=== PATIENT | male | born 1995 | race African-American/Black ===

== ENCOUNTER 2019-03-25 21:31 | Emergency (ER) | payer SELFPAY ==
[~2019-03-25] VITALS: Ht 182.9 cm; Wt 84.1 kg
[2019-03-25 21:57] VITALS: Ht 182.9 cm; Wt 84.1 kg
[2019-03-25] MEDS ORDERED: FLUTICASONE PRO16 GM NASAL (23:17)
[2019-03-25] MEDS ORDERED: AUGMENTIN 875-11 TAB PO (23:17)
[2019-03-25 23:25] VITALS: BP 139/79
== END 2019-03-25 23:25 | disposition home or self-care (01) ==
LOC: D.ER 21:31
DX: J01.90 Acute sinusitis, unspecified (principal); Z72.0 Tobacco use

== ENCOUNTER 2019-06-03 07:49 | Emergency (ER) | payer SELFPAY ==
[~2019-06-03] VITALS: Ht 182.9 cm; Wt 84.1 kg
[~2019-06-03 07:49] MED LIST: AUGMENTIN 875-11 TAB PO; FLUTICASONE PRO16 GM NASAL
[2019-06-03 07:52] VITALS: Ht 182.9 cm; Wt 84.1 kg
[2019-06-03] MEDS ORDERED: KEPPRA250 MG PO (08:14)
[2019-06-03 08:19] LABS: BASOPHILS 0.3 % (0-2); EOSINOPHILS 0.9 % (0-7); HEMATOCRIT 40.4 % (42.0-54.0); HEMOGLOBIN 13.9 g/dL (13.5-17.5); IMMATURE GRANULOCYTES 0.5 % (0-5); LYMPHOCYTES 27.4 % (15-50); MCH 29.8 pg (26.0-34.0); MCHC 34.4 g/dL (31.0-37.0); MCV 86.5 fL (80.0-100.0); MEAN PLATELET VOLUME 9.8 fL (7.4-10.4); MONOCYTES 10.3 % (2-11); NEUTROPHILS 60.6 % (40-80); PLATELET COUNT 286 10x3/uL (130-400); RBC 4.67 10x6/uL (4.20-6.10); RDW 12.3 % (11.5-14.5); WBC 7.8 10x3/uL (4.8-10.8)
[2019-06-03 08:24] LABS: CALC OSMOLALITY 275 mosm/kg (275-300); CALCIUM 8.4 mg/dL (8.5-10.1); CARBON DIOXIDE 26.4 mmol/L (21.0-32.0); CHLORIDE - SERUM 101 mmol/L (98-107); CREATININE - SERUM 0.9 mg/dL (0.6-1.3); GLUCOSE 112 mg/dL (74-106); POTASSIUM - SERUM 3.9 mmol/L (3.5-5.1); SODIUM 138 mmol/L (136-145); UREA NITROGEN 9 mg/dL (7-18); eGFR NON AFRICAN AMERICAN > 90 mL/min (90-120)
[2019-06-03 08:31] LABS: ALBUMIN 4.3 g/dL (3.4-5.0); ALKALINE PHOSPHATASE 58 U/L (30-120); ALT (SGPT) 60 U/L (10-68); BILIRUBIN - TOTAL 0.19 mg/dL (0.2-1.3); MAGNESIUM - SERUM 2.2 mg/dL (1.8-2.4); PROTEIN - SERUM 7.9 g/dL (6.4-8.2)
[2019-06-03 10:36] LABS: UDS - AMPHET NEGATIVE QUAL (NEGATIVE); UDS - BARB NEGATIVE QUAL (NEGATIVE); UDS - BENZO NEGATIVE QUAL (NEGATIVE); UDS - COCAINE NEGATIVE QUAL (NEGATIVE); UDS - OPIATE NEGATIVE QUAL (NEGATIVE); UDS - PCP NEGATIVE QUAL (NEGATIVE); UDS - THC POSITIVE QUAL (NEGATIVE)
[2019-06-03 10:53] LABS: BACTERIA FEW /hpf (NEGATIVE); BILIRUBIN NEGATIVE (NEGATIVE); EPITHELIAL CELLS 0-5 /hpf (0-5); GLUCOSE NEGATIVE (NEGATIVE); KETONE NEGATIVE (NEGATIVE); NITRITE NEGATIVE (NEGATIVE); RED CELLS - URINE RARE /hpf (0-5); SPECIFIC GRAVITY 1.015 (1.005-1.020); UROBILINOGEN NORMAL (NORMAL); WHITE CELLS - URINE RARE /hpf (NEGATIVE)
[2019-06-03 11:21] VITALS: BP 143/77
== END 2019-06-03 11:24 | disposition home or self-care (01) ==
LOC: D.ER 07:49
PROVIDERS: Family Medicine
DX: R56.9 Unspecified convulsions (principal); M25.512 Pain in left shoulder; M79.18 Myalgia, other site; Z91.14 Patient's other noncompliance with medication regimen